=== PATIENT | female | born 1960 | race Caucasian/White ===

== ENCOUNTER → 2016-07-05 | Outpatient (CLI) | payer BC ==
[~2016-07-05] MED LIST: ALBUTEROL17 GM INH; ALBUTEROL2.5 MG/0.5 INH; CLARINEX-D1 TAB.SR .; CLARITIN D PO; HYDROCHLOROTHIA25 MG PO; LEVAQUIN750 MG PO; LISINOPRIL10 MG PO; METOPROLOL SUCC25 MG PO; SPIRIVA18 MCG INH; SYMBICORT INH
--- NOTE | ~2016-07-05 | US5 ---
[facility] A Service of [facility] RADIOLOGY TEXT RESULTS PATIENT: ZEINA GRIFFIN LOCATION: [facility] : 56 UNIT #: [id number] AGE: [address]: JOSUE HUDSON MD SEX: F ORDER DR: [id number] [place], [place] [address] [id number] O MR#: [id number] Acc #: [id number] NAME: ZEINA GRIFFIN : 1960 SEX: F STUDY DATE/TIME: 07/05/2016 7:29 UNIT: [facility] ROOM: STUDY DESCRIPTION: US Abdominal Complete Attending Physician: Josue Hudson M.D. Referring Physician: Josue Hudson M.D. Ordering Physician: Josue Hudson M.D. Primary Care Physician: Josue Hudson M.D. MEDICAL IMAGING REPORT This report is preliminary unless electronic signature is present EXAM Abdominal ultrasound INDICATIONS Generalized abdominal pain for the past 6 weeks. PROCEDURE Avilez-scale and Doppler imaging of the abdomen. COMPARISON None FINDINGS Visualized portions abdominal aorta, inferior vena cava unremarkable. Unremarkable pancreas. There is a 1.4 cm cyst in the liver. No definite gallstones are seen. No appreciable wall thickening or pericholecystic fluid. Common duct measures 4 mm. Right kidney measures 9.2 cm. No hydronephrosis. There is a 2.3 cm cyst in the left kidney. Left kidney measures 8.3 cm. The spleen measures 7 cm. IMPRESSION 1. Hepatic and left renal cyst. 2. No clearly acute finding. No appreciable evidence for cholelithiasis. Dictated by... James Ziegler M.D. THIS IS AN ELECTRONICALLY VERIFIED REPORT James Ziegler M.D. at 07/06/2016 9:38 AM Sonido TD: 07/05/2016 09:53 JOB #: [id number] [facility] A Service of [facility] RADIOLOGY TEXT RESULTS PATIENT: ZEINA GRIFFIN LOCATION: [facility] #: [id number] : 56 UNIT #: [id number] AGE: [address]: JOSUE HUDSON MD SEX: F ORDER DR: MEDICAL IMAGING REPORT Page 1 of 1 COPY
== END | disposition home or self-care (01) ==
LOC: CGUS 06:57
DX: R10.12 Left upper quadrant pain (principal); K76.89 Other specified diseases of liver; N28.1 Cyst of kidney, acquired
CPT/HCPCS: 76700

== ENCOUNTER → 2016-07-17 | Outpatient (CLI) | payer BC ==
--- NOTE | ~2016-07-17 | NM22 ---
[facility] A Service of [facility] RADIOLOGY TEXT RESULTS PATIENT: ZEINA GRIFFIN LOCATION: [facility] : 56 UNIT #: [id number] AGE: [address]: Perry George MD SEX: F ORDER DR: [id number] [facility] [address] [place], [place] [address] [id number] O MR#: [id number] Acc #: [id number] NAME: ZEINA GRIFFIN : 1960 SEX: F STUDY DATE/TIME: 07/17/2016 10:52 UNIT: [facility] ROOM: STUDY DESCRIPTION: NM Hepatobiliary W GB Pharm Attending Physician: Perry George M.D. Ordering Physician: Perry George M.D. Primary Care Physician: Jaye Hudson M.D. MEDICAL IMAGING REPORT This report is preliminary unless electronic signature is present EXAM HIDA scan with Kinevac CCK, 07/17/2016 HISTORY Right upper quadrant abdominal pain and nausea, central abdominal pain especially after eating with abdominal bloating. Gas and constipation, low back pain, early satiety. Symptoms for 7 months. FINDINGS The patient received an intravenous injection of 5.42 mCi of technetium 99m tagged Choletec for hepatobiliary imaging. 1 hour following the injection of the radiopharmaceutical the patient received an intravenous injection of 1.4 mcg of Kinevac. There is homogeneous distribution of the radiotracer throughout the liver. Gallbladder activity was seen by 15 minutes postinjection of the radiopharmaceutical. Following Kinevac injection the gallbladder ejection fraction was 54.1% (normal is greater than 30%). IMPRESSION Normal HIDA scan with gallbladder ejection fraction of 54.1%. Dictated by... Rodolfo Moctezuma M.D. THIS IS AN ELECTRONICALLY VERIFIED REPORT Rodolfo Moctezuma M.D. at 07/19/2016 8:15 AM Ion TD: 07/17/2016 13:26 JOB #: [id number] MEDICAL IMAGING REPORT Page 1 of 1 COPY
== END | disposition home or self-care (01) ==
LOC: CNUC 09:00
DX: R10.9 Unspecified abdominal pain (principal)
CPT/HCPCS: 78227; A9537; J2805

== ENCOUNTER → 2016-08-02 | Day surgery (SDC) | payer BC ==
--- NOTE | ~2016-08-02 | OR ---
Unit #: [id number] #: [id number] Patient: ZEINA GRIFFIN [id number] [facility] [address] [place], [place] [address] [id number] O MR#: [id number] NAME: ZEINA GRIFFIN ROOM: Date of Procedure: 08/02/2016 Admission Date: 08/02/2016 Surgeon: Perry George M.D. : 1960 Attending Physician: Perry George M.D. Primary Care Physician: Jaye Hudson M.D. OPERATIVE REPORT PRIMARY CARE PHYSICIAN Jaye Hudson M.D. PREOPERATIVE DIAGNOSES Intermittent epigastric and right upper quadrant pain associated with nausea. POSTOPERATIVE DIAGNOSIS Phytobezoar. PROCEDURE PERFORMED Esophagogastroduodenoscopy to third portion of duodenum. ANESTHESIA Monitored anesthesia. INDICATIONS FOR PROCEDURE A 55-year-old female, who was referred to the office because of intermittent epigastric and right upper quadrant pain and associated with nausea. It is not consistently related to eating, but she does complain of bloating after eating. She also had some constipation, which responded to MiraLAX, but did not relieve her epigastric symptoms. Ultrasound of the gallbladder and HIDA scan with stimulation were both normal. DESCRIPTION OF PROCEDURE The patient was admitted to [facility], positively identified, and transported to the endoscopy suite. After appropriate monitoring and positioning, a bite block was placed and she was sedated by the nurse paving bed maker. The endoscope was passed through the oral cavity into the upper esophagus and under direct vision, we passed through the esophagus into the stomach, insufflated the stomach, and noted she had a large phytobezoar. There were no other abnormalities on antegrade and retrograde visualization of the stomach. I easily passed through the pylorus and of note, there was no stricture or narrowing of the pylorus. Duodenum and duodenal bulb were normal down to the third portion. As I came back in a retrograde fashion, the GE junction was well demarcated at 42 cm from the incisors. There was no hiatal hernia, no esophagitis, and no Collado mucosa. The esophageal mucosa was normal throughout and the larynx was normal. The patient tolerated the procedure well and was transported to recovery in stable condition. Because of her phytobezoar, we are going to schedule a gastric emptying study to assess her further. Of note, she does not carry the diagnosis of diabetes; however, she does Unit #: [id number] #: [id number] Patient: ZEINA GRIFFIN have a family history of type 1 diabetes. Dictated by... Evie Khan/ronald TD: 08/02/2016 07:37 JOB #: [id number] OPERATIVE REPORT Page 1 of 1 X Perry George MD X PROCEDURE OPERATIVE NOTE
== END | disposition home or self-care (01) ==
LOC: COPS 05:48
DX: T18.2XXA Foreign body in stomach, initial encounter (principal); R10.13 Epigastric pain; R10.11 Right upper quadrant pain; R11.0 Nausea; I10 Essential (primary) hypertension; J44.9 Chronic obstructive pulmonary disease, unspecified; K21.9 Gastro-esophageal reflux disease without esophagitis; E78.00 Pure hypercholesterolemia, unspecified; E87.5 Hyperkalemia; Z87.891 Personal history of nicotine dependence; Z79.899 Other long term (current) drug therapy

== ENCOUNTER → 2016-08-09 | Outpatient (CLI) | payer BC ==
--- NOTE | ~2016-08-09 | NM19 ---
[facility] A Service of [facility] RADIOLOGY TEXT RESULTS PATIENT: ZEINA GRIFFIN LOCATION: [facility] : 56 UNIT #: [id number] AGE: [address]: Perry George MD SEX: F ORDER DR: [id number] [facility]. [place], [place] [address] [id number] O MR#: [id number] Acc #: [id number] NAME: ZEINA GRIFFIN : 1960 SEX: F STUDY DATE/TIME: 08/09/2016 10:19 UNIT: [facility] ROOM: STUDY DESCRIPTION: CT Gastric Emptying Study Attending Physician: Perry George M.D. Referring Physician: Perry George M.D. Ordering Physician: Perry George M.D. Primary Care Physician: Jaye Hudson M.D. MEDICAL IMAGING REPORT This report is preliminary unless electronic signature is present EXAM Radionuclide gastric emptying scan 08/09/2016 HISTORY Nausea and vomiting after meals for 2 months. TECHNIQUE Following oral ingestion of 509 mcCi technetium 99m sulfur colloid, anterior and posterior views of the abdomen were obtained at 0, 15, 30, 45 and 60 minutes. Regions of interest drawn around stomach. Time activity curve constructed. Percent empty at time intervals as follows: 15 minutes - 10%, 30 minutes - 33%, 45 minutes - 74%, 60 minutes - 81%. The calculated T one-half of gastric emptying is 37 minutes. Normal range of gastric emptying at this laboratory greater than equal 50% in 65-90 minutes. IMPRESSION T one-half of gastric emptying 37 minutes. Normal range at this laboratory is greater than or equal to 50% emptying in 65-90 minutes. Dictated by... Ravi Martinez M.D. THIS IS AN ELECTRONICALLY VERIFIED REPORT Ravi Martinez M.D. at 08/10/2016 10:55 PM EDIEK/barbie TD: 08/09/2016 17:26 JOB #: [id number] MEDICAL IMAGING REPORT [facility] A Service of [facility] RADIOLOGY TEXT RESULTS PATIENT: ZEINA GRIFFIN [id number] : 56 UNIT #: [id number] AGE: [address]: Perry George MD SEX: F ORDER DR: Page 1 of 1 COPY
== END | disposition home or self-care (01) ==
LOC: CNUC 09:03
DX: T18.9XXA Foreign body of alimentary tract, part unspecified, initial encounter (principal); R94.8 Abnormal results of function studies of other organs and systems
CPT/HCPCS: 78264; A9541

== ENCOUNTER → 2016-08-29 | Outpatient (CLI) | payer BC ==
--- NOTE | ~2016-08-29 | CT6 ---
[facility] A Service of [facility] RADIOLOGY TEXT RESULTS PATIENT: ZEINA GRIFFIN LOCATION: [facility] EDT #: [id number] : 56 UNIT #: [id number] AGE: [address]: Perry George MD SEX: F ORDER DR: [id number] [facility]. [place], [place] [address] [id number] O MR#: [id number] Acc #: [id number] NAME: ZEINA GRIFFIN : 1960 SEX: F STUDY DATE/TIME: 08/29/2016 8:31 UNIT: [facility] ROOM: STUDY DESCRIPTION: CT Abdomen WWo Cont Attending Physician: Perry George M.D. Referring Physician: Perry George M.D. Ordering Physician: Perry George M.D. Primary Care Physician: Jaye Hudson M.D. MEDICAL IMAGING REPORT This report is preliminary unless electronic signature is present EXAM CT abdomen without and with contrast INDICATIONS Indeterminate hepatic and left renal lesions on previous ultrasound. Observation for hepatic and renal mass. PROCEDURE Unenhanced CT of the abdomen. Postcontrast CT of the abdomen, 100 mL of Isovue-[address] exam was performed with one or more of the following radiation dose reduction techniques: automatic exposure control, adjustment of mA and/or kV according to patient size, and iterative reconstruction. COMPARISON Abdominal ultrasound 07/05/2016 FINDINGS Abdomen without contrast: Emphysematous change in the included lung bases. No radiodense gallstones. No radiodense renal calculus. Abdomen with contrast: There is a 1.3 cm cyst segment 4-A of the liver. The spleen, adrenal glands, pancreas gallbladder, unremarkable. 2.3 cm benign left renal parapelvic cyst. No enhancing renal mass. The included bowel loops are nondilated. Moderate colonic stool burden. Tiny fat-containing umbilical hernia. No aggressive appearing bone lesion. IMPRESSION 1. No acute findings. 2. Benign hepatic and left renal cyst as detailed above. [facility] A Service of [facility] RADIOLOGY TEXT RESULTS PATIENT: ZEINA GRIFFIN LOCATION: [facility] EDT #: [id number] : 56 UNIT #: [id number] AGE: [address]: Perry George MD SEX: F ORDER DR: 3. Moderate colonic stool. Dictated by... James Ziegler M.D. THIS IS AN ELECTRONICALLY VERIFIED REPORT James Ziegler M.D. at 08/30/2016 7:34 AM RUTHANN/deedee TD: 08/29/2016 14:42 JOB #: [id number] MEDICAL IMAGING REPORT Page 1 of 1 COPY
[2016-08-29 11:21] LABS: POC - CREATININE 0.74 mg/dL (0.44-1.03); POC - GFR >60.0 mL/min (>60)
== END | disposition home or self-care (01) ==
LOC: CCAT 07:03
PROVIDERS: Specialist
DX: R10.13 Epigastric pain (principal); R10.11 Right upper quadrant pain; J30.9 Allergic rhinitis, unspecified; J06.9 Acute upper respiratory infection, unspecified; R10.12 Left upper quadrant pain; I10 Essential (primary) hypertension; K76.89 Other specified diseases of liver; N28.1 Cyst of kidney, acquired
CPT/HCPCS: 74170; 82565; Q9967